=== PATIENT | female | born 1970 | race Caucasian/White ===

== ENCOUNTER → 2019-11-10 | Outpatient (CLI) | payer BC ==
--- NOTE | 2019-11-10 17:40 | RAD ---
THYROID ULTRASOUND History: Reason: ABNORMAL TSH / Spl. Instructions: / History: Comparison: None. Technique: Multiple grayscale and color Doppler images of the thyroid gland were obtained. Findings: Right thyroid lobe: 5.4 x 2.0 x 1.8 cm. Mildly heterogeneous with increased vascularity Left thyroid lobe: 4.5 x 1.3 x 1.8 cm. Mildly heterogeneous with increased vascularity. Isthmus: 0.2 cm. No discrete nodule. IMPRESSION: 1. Mildly heterogeneous thyroid with increased vascularity, may indicate nonspecific thyroiditis. Recommend correlation with thyroid lab values. Electronically signed by: Kevin Gu DO (11/10/2019 5:37 PM) [id number]
== END | disposition home or self-care (01) ==
LOC: US 09:51
PROVIDERS: ATTEND Family Medicine
DX: E07.89 Other specified disorders of thyroid (principal); R79.89 Other specified abnormal findings of blood chemistry
CPT/HCPCS: 76536